=== PATIENT | female | born 1985 | race African-American/Black ===

== ENCOUNTER 2018-05-06 22:36 | Emergency (ER) | payer BC ==
--- NOTE | 2018-05-06 23:20 | ER Document Report ---
ED Skin Rash/Insect Bite/Abscs - General Chief Complaint: Cyst Stated Complaint: VAGINAL PAIN Time Seen by Provider: 05/06/18 23:20 Mode of Arrival: Ambulatory Information source: Patient Notes: Patient is a 32-year-old female with history of Bartholin's cyst abscess who presents to the ER today for the same thing that she noticed yesterday. Patient states that she has a lot of swelling to the left labia and a lot of pain around the Bartholin's gland. Patient states she has had this once before , years ago when she came to the emergency department but never had to have it incised and drained because it burst in the emergency department waiting room. She has never seen OB for this. She denies any fevers or chills. TRAVEL OUTSIDE OF THE [place] IN LAST 30 DAYS: No - Related Data Allergies/Adverse Reactions: No Known Allergies Allergy (Unverified 05/06/18 22:41) Past Medical History - General Information source: Patient - Social History Smoking Status: Unknown if Ever Smoked Family History: Reviewed & Not Pertinent Patient has suicidal ideation: No Patient has homicidal ideation: No Renal/ Medical History: Denies: Hx Peritoneal Dialysis Review of Systems - Review of Systems Constitutional: No symptoms reported EENT: No symptoms reported Cardiovascular: No symptoms reported Respiratory: No symptoms reported Gastrointestinal: No symptoms reported Genitourinary: No symptoms reported Female Genitourinary: See HPI Musculoskeletal: No symptoms reported Skin: No symptoms reported Hematologic/Lymphatic: No symptoms reported Neurological/Psychological: No symptoms reported Physical Exam - Vital signs Vitals: Temp Pulse Resp BP Pulse Ox 100.0 F 115 H 16 125/78 99 05/06/18 22:58 05/06/18 22:58 05/06/18 22:58 05/06/18 22:58 05/06/18 22:58 - Notes Notes: PHYSICAL EXAMINATION: GENERAL: Uncomfortable appearing, but in no acute distress. HEAD: Atraumatic, normocephalic. EYES: Pupils equal round and reactive to light, extraocular movements intact, sclera anicteric, conjunctiva are normal. NECK: Normal range of motion, supple without lymphadenopathy LUNGS: CTAB and equal. No wheezes rales or rhonchi. HEART: Regular rate and rhythm without murmurs ABDOMEN: Soft, no tenderness. No guarding, no rebound Pelvic: Edematous left labia majora, large, fluctuant Bartholin's abscess, tender, oozing pus with foul odor EXTREMITIES: Normal range of motion, no pitting edema. No cyanosis. NEUROLOGICAL: Cranial nerves grossly intact. Normal sensory/motor exams. PSYCH: Normal mood, normal affect. SKIN: Warm, Dry, normal turgor, no rashes or lesions noted Course - Re-evaluation Re-evalutation: 05/07/18 01:07 I was going to incise and drain the Bartholin's cyst abscess, however it burst on its own here in the emergency department. I did drain the pus, flushed out with saline, break apart loculations with hemostats. Word catheter was placed successfully. Patient to follow-up with [facility]. I will provide her with some pain medication and antibiotic. - Vital Signs Vital signs: Temp Pulse Resp BP Pulse Ox 100.0 F 115 H 16 125/78 99 05/06/18 22:58 05/06/18 22:58 05/06/18 22:58 05/06/18 22:58 05/06/18 22:58 Procedures - Additional Procedures Wurd catheter placement Time performed: 00:00 - Placed successfully, balloon inflated with 3 cc of saline Discharge - Discharge Clinical Impression: Bartholin's gland abscess Condition: Stable Disposition: HOME, SELF-CARE Additional Instructions: Return immediately for any new or worsening symptoms. Follow up with [facility], call tomorrow to make followup appointment. Prescriptions: Oxycodone HCl/Acetaminophen [Percocet 5-325 mg Tablet] 1 tab PO Q4 PRN #20 tab PRN Reason: Sulfamethoxazole/Trimethoprim [Bactrim Ds Tablet] 1 each PO BID #20 tablet Referrals: [facility] [Provider Group] - Follow up as needed
[2018-05-07] MEDS ORDERED: OXYCODONE-ACETAMINOPHEN 5-325 MG TABLET PO ONE (00:40)
[2018-05-07] MEDS ORDERED: SULFAMETHOXAZOLE/TRIMETHOPRIM 800-160 MG TABLET PO ONE (00:40)
[2018-05-07 01:39] VITALS: BP 119/63
== END 2018-05-07 01:10 | disposition home or self-care (01) ==
LOC: ER 22:36
DX: N75.1 Abscess of Bartholin's gland (principal)
CPT/HCPCS: 99283